=== PATIENT | male | born 1960 | race Caucasian/White ===

== ENCOUNTER → 2018-11-04 12:19 | Outpatient (CLI) | payer OTHER | END | disposition home or self-care (01) | LOC: D.RAD 12:19 | PROVIDERS: ATTEND Pediatrics | DX: Z02.71 Encounter for disability determination (principal) ==

== ENCOUNTER 2019-12-17 11:14 | Emergency (ER) | payer OTHER ==
[~2019-12-17] VITALS: Ht 160 cm; Wt 68.2 kg
[2019-12-17 11:25] VITALS: Ht 160 cm; Wt 68.2 kg
[2019-12-17] MEDS ORDERED: BACLOFEN20 M1 PO (12:36)
[2019-12-17] MEDS ORDERED: NAPROSYN500 MG PO (12:36)
[2019-12-17 13:27] VITALS: BP 130/76
== END 2019-12-17 13:28 | disposition home or self-care (01) ==
LOC: D.ER 11:14
DX: S49.91XA Unspecified injury of right shoulder and upper arm, initial encounter (principal); M25.512 Pain in left shoulder; M25.511 Pain in right shoulder; R07.81 Pleurodynia; X50.9XXA Other and unspecified overexertion or strenuous movements or postures, initial encounter; Y93.9 Activity, unspecified; Y92.9 Unspecified place or not applicable

== ENCOUNTER 2021-01-22 07:21 | Emergency (ER) | payer OTHER ==
[~2021-01-22] VITALS: Ht 160 cm; Wt 63.6 kg
[~2021-01-22 07:21] MED LIST: BACLOFEN20 M1 PO; NAPROSYN500 MG PO
[2021-01-22 07:30] VITALS: BP 94/67; Ht 160 cm; Wt 63.6 kg
[2021-01-22] MEDS ORDERED: ORAL ANALGESIC9 GM TOPICAL (07:33)
[2021-01-22] MEDS ORDERED: CEPHALEXIN500 M1 PO (07:33)
[2021-01-22] MEDS ORDERED: IBUPROFEN800 MG PO (07:33)
[2021-01-22] MEDS ORDERED: CYCLOBENZAPRINE10 MG PO (07:33)
[2021-01-22] MEDS ORDERED: ACETAMINOPHEN500 M1 PO (07:33)
== END 2021-01-22 08:13 | disposition home or self-care (01) ==
LOC: D.ER 07:21
DX: K04.7 Periapical abscess without sinus (principal); K02.9 Dental caries, unspecified; K08.89 Other specified disorders of teeth and supporting structures